=== PATIENT | female | born 1955 | race Caucasian/White ===

== ENCOUNTER 2017-12-24 08:10 | Emergency (ER) | payer MEDICARE, OTHER ==
[~2017-12-24] VITALS: Ht 157.5 cm; Wt 102.1 kg
[~2017-12-24 08:10] MED LIST: ASPIR-LOW81 MG PO; CYMBALTA60 MG PO; HYDROCHLOROTHIA25 MG PO; K-TAB ER20 MEQ PO; LIPITOR80 MG PO; LYRICA200 MG PO; METOPROLOL SUCC50 MG PO; PRILOSEC OTC20 MG PO; QVAR8.7 G1; STIOLTO RESPIMAT4 GM; THRIVE; TRAZODONE HCL150 MG PO; VENTOLIN HFA18 GM INH; VITAMIN D2000 UNI1 PO; ZITHROMAX250 MG PO
[2017-12-24] MEDS ORDERED: ZOFRAN ODT4 MG PO (10:58)
[2017-12-24] MEDS ORDERED: CIPRO500 MG PO (10:58)
== END 2017-12-24 11:18 | disposition home or self-care (01) ==
LOC: ED 08:10
DX: K52.9 Noninfective gastroenteritis and colitis, unspecified (principal); J44.9 Chronic obstructive pulmonary disease, unspecified; I10 Essential (primary) hypertension; F41.9 Anxiety disorder, unspecified; F32.9 Major depressive disorder, single episode, unspecified; I25.10 Atherosclerotic heart disease of native coronary artery without angina pectoris; Z87.891 Personal history of nicotine dependence; Z79.899 Other long term (current) drug therapy; Z79.82 Long term (current) use of aspirin
CPT/HCPCS: 74177; 80053; 83605; 83690; 85025; 96361; 96374; 96375; 99284; J2405; J2550; J7030; J7040; Q9967

== ENCOUNTER 2018-08-26 05:35 | Emergency (ER) | payer MEDICARE, OTHER ==
[~2018-08-26] VITALS: Ht 157.5 cm; Wt 90.7 kg
[~2018-08-26 05:35] MED LIST changes: +CIPRO500 MG PO; +ZOFRAN ODT4 MG PO
[2018-08-26] MEDS ORDERED: ERYTHROMYCIN250 M1 PO (05:47)
[2018-08-26] MEDS ORDERED: FLOVENT HFA12 GM INH (05:59)
[2018-08-26] MEDS ORDERED: ANORO ELLIPTA1 EACH INH (05:59)
[2018-08-26] MEDS ORDERED: LOSARTAN POTASS50 MG PO (06:01)
[2018-08-26] MEDS ORDERED: WELLBUTRIN XL300 MG PO (06:04)
[2018-08-26] MEDS ORDERED: ZOFRAN8 MG PO (06:08)
[2018-08-26] MEDS ORDERED: GARLIC OIL1000 MG PO (06:09)
[2018-08-26] MEDS ORDERED: LITHIUM CARBON300 M2 PO (06:27)
[2018-08-26] MEDS ORDERED: LITHIUM CARBON450 MG PO (06:27)
[2018-08-26] MEDS ORDERED: CLOTRIMAZOLE15 GM TOP (06:30)
== END 2018-08-26 07:06 | disposition home or self-care (01) ==
LOC: ED 05:35
PROC: 4A0D7LZ Measurement of Urinary Volume, Via Natural or Artificial Opening (ICD-10-PCS; principal; 2018-08-26)
DX: G89.29 Other chronic pain (principal); M54.5 Low back pain; J44.9 Chronic obstructive pulmonary disease, unspecified; F31.9 Bipolar disorder, unspecified; I12.9 Hypertensive chronic kidney disease with stage 1 through stage 4 chronic kidney disease, or unspecified chronic kidney disease; N18.2 Chronic kidney disease, stage 2 (mild); F17.200 Nicotine dependence, unspecified, uncomplicated; Z79.899 Other long term (current) drug therapy; Z79.82 Long term (current) use of aspirin
CPT/HCPCS: 51798; 81001; 99283-25

== ENCOUNTER 2019-04-20 08:54 | Emergency (ER) | payer MEDICARE, OTHER ==
[~2019-04-20] VITALS: Ht 157.5 cm; Wt 97.5 kg
[~2019-04-20 08:54] MED LIST changes: +ANORO ELLIPTA1 EACH INH; +CLOTRIMAZOLE15 GM TOP; +ERYTHROMYCIN250 M1 PO; +FLOVENT HFA12 GM INH; +GARLIC OIL1000 MG PO; +IPRATROPIU0.2 MG/1 M INH; +LITHIUM CARBON300 M2 PO; +LITHIUM CARBON450 MG PO; +LOSARTAN POTASS50 MG PO; +MIRALAX17 GM; +POTASSIUM CHLO10 MEQ PO; +PROPRANOLOL HCL20 MG PO; +SENNA8.6 MG PO; +VISTARIL50 MG PO; +WELLBUTRIN SR150 MG PO; +WELLBUTRIN XL300 MG PO; +ZOFRAN8 MG PO
[2019-04-20] MEDS ORDERED: PYRIDIUM200 MG PO (11:37)
[2019-04-20] MEDS ORDERED: ATIVAN1 MG PO (11:37)
[2019-04-21] MEDS ORDERED: CHANTIX1 MG PO (17:33)
[2019-04-21] MEDS ORDERED: FLOVENT HFA12 G1 INH (17:34)
[2019-04-21] MEDS ORDERED: LOSARTAN POTASS25 MG PO (17:35)
[2019-04-21] MEDS ORDERED: K-TAB ER20 MEQ PO (17:36)
[2019-04-21] MEDS ORDERED: ONDANSETRON ODT8 MG SL (17:38)
[2019-04-21] MEDS ORDERED: VENTOLIN HFA18 GM INH (17:40)
== END 2019-04-20 12:03 | disposition home or self-care (01) ==
LOC: ED 08:54
DX: I12.9 Hypertensive chronic kidney disease with stage 1 through stage 4 chronic kidney disease, or unspecified chronic kidney disease (principal); N18.2 Chronic kidney disease, stage 2 (mild); F41.9 Anxiety disorder, unspecified; F32.9 Major depressive disorder, single episode, unspecified; Z95.5 Presence of coronary angioplasty implant and graft; Z87.891 Personal history of nicotine dependence; Z88.8 Allergy status to other drugs, medicaments and biological substances; Z79.899 Other long term (current) drug therapy; Z79.82 Long term (current) use of aspirin
CPT/HCPCS: 70450; 80053; 80178; 81001; 82550; 85025; 96361; 96374; 96375; 99284-25; J2060; J2405; J7030

== ENCOUNTER 2019-04-20 18:21 | Inpatient (IN) | payer MEDICARE, OTHER ==
[~2019-04-20] VITALS: Ht 157.5 cm; Wt 105.1 kg
[~2019-04-20 18:21] MED LIST changes: +ATIVAN1 MG PO; +PYRIDIUM200 MG PO
--- OUTSIDE RECORDS SUMMARY | 2019-04-20 18:24 | XMS ---
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 E.D. VISIT COUNT (12 MO.) 3 [facility] TOTAL 3 NOTE: Visits indicate total known visits. ED/UCC VISIT TRACKING (12 MO.) 04/20/2019 18:22 [facility] [place] TYPE: Emergency COMPLAINT: - CONFUSION,UNABLE TO WALK 04/20/2019 08:55 [facility] [place] TYPE: Emergency COMPLAINT: - DIFFICULTY SPEAKING 08/26/2018 05:[address] [facility] [place] TYPE: Emergency COMPLAINT: - LOW BACK PAIN DIAGNOSES: - group home (current) use of aspirin - Chronic kidney disease, stage 2 (mild) - Bipolar disorder, unspecified - Nicotine dependence, unspecified, uncomplicated - Chronic obstructive pulmonary disease, unspecified - Other ocean transportation intermediary (current) drug therapy - Other chronic pain - Low back pain - Hypertensive chronic kidney disease with stage 1 through stage 4 chronic kidney disease, or unspecified chronic kidney disease INPATIENT VISIT TRACKING (12 MO.) No inpatient visits to display in this time frame [email or web address]
--- NOTE | 2019-04-21 14:04 | EKG ---
[facility] [address] [place] [address] Signed Sinus tachycardia with premature atrial complexes with aberrant conduction Possible Left atrial enlargement Borderline ECG When compared with ECG of 27-JAN-2019 09:30, aberrant conduction is now present Vent. rate has increased BY 42 BPM Confirmed by FRANCISCO GAVIRIA MD ([id number]) on 04/21/2019 2:04:48 PM Electronically Signed By: FRANCISCO GAVIRIA MD 04/21/19 1404 PATIENT NAME: BLANQUITA JAIMES CARINA Electrocardiogram DATE OF : 57 PHYSICIAN: FRANCISCO GAVIRIA MD REPORT #: [id number] REPORT IS CONFIDENTIAL AND NOT TO BE RELEASED WITHOUT AUTHORIZATION
[2019-04-21] MEDS ORDERED: CHANTIX1 MG PO (17:33)
[2019-04-21] MEDS ORDERED: FLOVENT HFA12 G1 INH (17:34)
[2019-04-21] MEDS ORDERED: LOSARTAN POTASS25 MG PO (17:35)
[2019-04-21] MEDS ORDERED: K-TAB ER20 MEQ PO (17:36)
[2019-04-21] MEDS ORDERED: ONDANSETRON ODT8 MG SL (17:38)
[2019-04-21] MEDS ORDERED: VENTOLIN HFA18 GM INH (17:40)
[2019-04-23] MEDS ORDERED: CIPROFLOXACIN500 MG PO (10:09)
[2019-04-23] MEDS ORDERED: LOSARTAN POTAS100 MG PO (10:10)
== END 2019-04-23 10:55 | disposition home or self-care (01) | DRG 871 ==
LOC: ED 18:21 → CCU 23:12 → MS 04-22 12:30 → CCU 04-22 12:36 → MS 04-23 10:55
PROVIDERS: ADMIT Internal Medicine
DX: A41.50 Gram-negative sepsis, unspecified (principal); G93.41 Metabolic encephalopathy; N30.00 Acute cystitis without hematuria; E86.0 Dehydration; I25.10 Atherosclerotic heart disease of native coronary artery without angina pectoris; I10 Essential (primary) hypertension; J44.9 Chronic obstructive pulmonary disease, unspecified; K21.9 Gastro-esophageal reflux disease without esophagitis; E78.5 Hyperlipidemia, unspecified; F41.9 Anxiety disorder, unspecified; F31.9 Bipolar disorder, unspecified; Z88.8 Allergy status to other drugs, medicaments and biological substances; Z98.61 Coronary angioplasty status; Z87.891 Personal history of nicotine dependence; Z79.82 Long term (current) use of aspirin; Z79.51 Long term (current) use of inhaled steroids; Z79.899 Other long term (current) drug therapy
CPT/HCPCS: 36415; 51702; 62270; 71045; 80053; 81001; 82945; 83605; 83735; 84132; 84157; 85007; 85025; 85032; 87070; 87088; 87205; 89051; 93005; 93010; 94640; 99285-25; C9113; J0696; J1630; J1650; J2060; J2405; J3475; J3480; J7030; J7120

== ENCOUNTER 2019-05-03 12:21 | Emergency (ER) | payer MEDICARE, OTHER ==
[~2019-05-03] VITALS: Ht 157.5 cm; Wt 105.1 kg
[~2019-05-03 12:21] MED LIST changes: +CHANTIX1 MG PO; +CIPROFLOXACIN500 MG PO; +FLOVENT HFA12 G1 INH; +LOSARTAN POTAS100 MG PO; +LOSARTAN POTASS25 MG PO; +ONDANSETRON ODT8 MG SL
--- OUTSIDE RECORDS SUMMARY | 2019-05-03 12:24 | XMS ---
PreManage Notification: BLANQUITA JAIMES Security Electro Plater Events No recent Security Events currently on file CRITERIA MET - [facility] - [facility] - 2 Visits in 30 Days CARE PROVIDERS MARIS RODRIGUEZ [facility] 04/21/2019-Current PHONE: [phone] Nette Burdick Rail Signal Worker/Farmworker [place] 11/23/2017-Current PHONE: [phone] MARIS RODRIGUEZ Primary Care Current PHONE: Unknown Nette Burdick [facility] 11/23/2017-Current PHONE: [phone] [facility] Other 02/05/2016-Current [facility] PHONE: Unknown Myesha has no Care Guidelines for this patient. Jacques VISIT COUNT (12 MO.) 1 [place] [address] [facility] Ruiz TOTAL 5 NOTE: Visits indicate total known visits. ED/UCC VISIT TRACKING (12 MO.) 05/03/2019 12:21 [facility] TYPE: Emergency COMPLAINT: - MEDICAL CLEARANCE 04/30/2019 12:03 [facility] TYPE: Emergency DIAGNOSES: - FALLING CONFUSED TROUBLE SWALLOWING - Weakness 04/20/2019 18:22 [facility] [place] TYPE: Emergency COMPLAINT: - CONFUSION,UNABLE TO WALK 04/20/2019 08:55 [facility] [place] TYPE: Emergency COMPLAINT: - DIFFICULTY SPEAKING DIAGNOSES: - Hypertensive chronic kidney disease with stage 1 through stage 4 chronic kidney disease, or unspecified chronic kidney disease - Presence of coronary angioplasty implant and graft - Chronic kidney disease, stage 2 (mild) - Major depressive disorder, single episode, unspecified - Anxiety disorder, unspecified - Personal history of nicotine dependence - intermediate manager (current) use of aspirin - Allergy status to other drugs, medicaments and biological substances status - Other buttermaker helper (current) drug therapy 08/26/2018 05:35 [facility] [place] TYPE: Emergency COMPLAINT: - LOW BACK PAIN DIAGNOSES: - [facility] (current) use of aspirin - Chronic kidney disease, stage 2 (mild) - Bipolar disorder, unspecified - Nicotine dependence, unspecified, uncomplicated - Chronic obstructive pulmonary disease, unspecified - Other buttermaker helper (current) drug therapy - Other chronic pain - Low back pain - Hypertensive chronic kidney disease with stage 1 through stage 4 chronic kidney disease, or unspecified chronic kidney disease INPATIENT VISIT TRACKING (12 MO.) 04/20/2019 23:12 [facility] TYPE: Medical Surgical COMPLAINT: - SEPSIS, ENCEPHALOPATHY DIAGNOSES: - Allergy status to other drugs, medicaments and biological substances status - Coronary angioplasty status - Acute cystitis without hematuria - Essential (primary) hypertension - Gram-negative sepsis, unspecified - Chronic obstructive pulmonary disease, unspecified - intermediate manager (current) use of aspirin - Anxiety disorder, unspecified - [facility] (current) use of inhaled steroids - Metabolic encephalopathy - Sepsis, unspecified organism - Gastro-esophageal reflux disease without esophagitis - Dehydration - Atherosclerotic heart disease of [place] coronary artery without angina pectoris - Bipolar disorder, unspecified - Other buttermaker helper (current) drug therapy - Hyperlipidemia, unspecified - Personal history of nicotine dependence [email or web address]
[2019-05-03] MEDS ORDERED: HYDROCHLOROTHIA25 MG PO (13:00)
== END 2019-05-03 14:15 | disposition home or self-care (01) ==
LOC: ED 12:21
DX: F31.9 Bipolar disorder, unspecified (principal); F41.9 Anxiety disorder, unspecified; I12.9 Hypertensive chronic kidney disease with stage 1 through stage 4 chronic kidney disease, or unspecified chronic kidney disease; N18.2 Chronic kidney disease, stage 2 (mild); Z87.891 Personal history of nicotine dependence; Z95.5 Presence of coronary angioplasty implant and graft; Z88.8 Allergy status to other drugs, medicaments and biological substances; Z79.899 Other long term (current) drug therapy
CPT/HCPCS: 80053; 80176; 81001; 84443; 85025; 99283; G0480